=== PATIENT | female | born 1985 | race Caucasian/White ===

== ENCOUNTER 2023-12-27 14:13 | Outpatient (CLI) | payer BC, SELFPAY ==
--- OUTSIDE RECORDS SUMMARY | 2023-12-27 14:17 | XMS_ITS | Continuity of Care Document ---
Author Name Unknown Organization Z [facility] [place] Address [address] [place] [address] [address] [place] [address] Phone Care Team Providers Care Toaster Operator Name Role Phone Cindi OSWALD, Amireg Unavailable Unavailable Advance Directives Directive Yes / No Effective Date File Name No Information Encounters Encounter Description Practice Location Reason(s) For Visit Diagnoses Date Provider Providers Copied on Encounter Z [facility], [address] [place], [place] [address], [place], [address], [place] tel:[phone] [facility] No Information Cindi Butts. [facility], [address] [place] [address] [address], [place], [place], [id number] , [place]. tel:[phone] Referring Provider: Pete Rader, [address], [place], [address]. tel:[phone] Family History Family Member Type Diagnosis Age At Onset No Information Payers Payer name Insurance type Covered constitution party ID Authoriza tion(s) No Information Social History Type Description Quantity Date Captured Comments Sex Female Smoking Status No Information Chief Complaint And Reason For Visit No Information Reason For Referral Reason For Referral No Information History Of Present Illness Encounter Date Complaint History Of Prese nt Illness No Information Functional Status Date Functional Assessmen t No Information Instructions Date Instruction Additional Infor mation No Information Assessments Type Assessment Date No Information Patient Care Teams Name Effective Dates (start - stop) Status Members No Information
--- OUTSIDE RECORDS SUMMARY | 2023-12-27 14:17 | XMS_ITS | Clinical Summary ---
Author Name Unknown Organization [email or web address] Address [place], [place] [address] Care Team Providers Care Mobile Homes Repairer Name Role Phone [place] Primary Care Provider Unavail able Allergies Active Allergy Reactions Criticality Noted Date Comments Levonorgestrel-Ethinyl Estrad Vomiting Medications Medication Sig Dispensed Refills Start Date End Date Status ibuprofen (ADVIL; MOTRIN) 600 mg tabletIndications: Sprain of neck, subsequent encounter Take 1 tablet by mouth 3 times daily with meals. Maximum of 3200 mg in 24 hours. 90 tablet 3 09/16/2015 Active acetaminophen (TYLENOL EXTRA STRGTH) 500 mg tablet Max acetaminophen dose: 4000mg in 24 hrs. Pt takes 1 tablet every day 0 12/09/2015 Active predniSONE (DELTASONE) 20 mg tabletIndications: Granulomatous mastitis Take 1.5 tablets by mouth once daily with a meal. 10 tablet 0 03/16/2016 Active traMADol (ULTRAM) 50 mg tabletIndications: Breast pain Take 0.5 tablets by mouth every 6 hours if needed for Pain. 15 tablet 0 03/22/2016 Active isoniazid 300 mg tabletIndications: TB lung, latent Take 1 tablet by mouth once daily. 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 Zaragoza Hydrocodone, up to 60 a month, usually less. Adjustment disorder with mixed anxiety and depre ssed mood 01/03/2011 Spasm of muscle 03/25/2009 Carpal tunnel syndrome 03/25/2009 Sprain of neck 01/31/2008 Backache, unspecified 09/16/2007 Nonspecific reaction to tube rculin skin test without active tuberculosis Overview: 1998 Resolved Problems Problem Noted Date Diagnosed Date Resolved Date NECK SPRAIN 07/17/2008 07/02/2009 Immunizations Name Administration Dates Next Due DT (Age < 7 years) 09/07/1997 Hepatitis B (Adult) 08/01/2017,06/26/2017 Human Papilloma Virus Vaccine 04/16/2007, 007,09/28/2006 Influenza RIV4 (Age 18+ Year s) PRESERV FREE 10/31/2019 Influenza, IIV3 (Age 6-35 mos) 3,08/12/2012,08/29/2011,2009,10/18/2009 Influenza, IIV3 (Age >=3 years) 10/18/2009 Influenza, IIV4 09/07/2016 Influenza,LAIV4 Live Intrana israel (Flumist) 09/10/2015 MMR 09/07/1997,06/11/1990 Td, Preservative Free (age > = 7 Years) 03/07/2019 Tdap 03/02/2008 Family History Medical History Relation Name Comments Hyperlipidemia Father Hypertension Father Other Father [place] Good Health Mother Diabetes Sister Anesthesia Problem No Family History Blood Disease No Family History Cancer-breast No Family History Relation Name Status Comments Father Mother Sister Social History Tobacco Use Types Packs/Day Years Used Date Smoking Tobacco: Never Smokeless Tobacco: Never Tobacco Cessation:Counseling Given: Yes Alcohol Use Standard Drinks/Week Comments No 0 (1 standard drink = 0.6 oz pur e alcohol) Social Connections Answer Date Recorded Frequency of Communication with Friends and Fami ly Not on file 11/12/2021 Financial Resource Strain Answer Date R ecorded Difficulty of Paying Living Expenses Not on file 11/12/2021 Difficulty of Paying Living Expenses Not on file 11/12/2021 Sex and Gender Information Value Date Recorded Sex Assigned at Not on file Gender Identity Not on file Sexual Orientation Not on file Obstetrics History Last Filed Vital Signs Vital Sign Reading Time Taken Comments Blood Pressure 128/71 10/03/2016 11:00 AM SCIENTIFIC DATABASE CURATOR Pulse 78 10/03/2016 11:00 AM SCIENTIFIC DATABASE CURATOR Temperature 37.1 ??C (98.8 ??F) 10/03/2016 1 1:00 AM SCIENTIFIC DATABASE CURATOR Respiratory Rate 16 07/19/2016 11:3 0 AM CDT Oxygen Saturation 98% 10/03/2016 11: 00 AM SCIENTIFIC DATABASE CURATOR RA Inhaled Oxygen Concentration - - Weight 72.6 kg (160 lb) 08/02/2021 9:34 AM CDT Pt. reported TB 08-02-21 Height 142.2 cm (4' 8) 08/02/2021 9:34 AM CDT Pt. reported TB 08-02-21 Body Mass Index 35.87 08/02/2021 9:34 AM CDT Plan of Treatment Health Maintenance Due Date Last Done Comments HIV for age 15-65 1998 Hepatitis C screening for age 18-79 2001 Depression screening for age 12+ 12/03/2016 12/03/2015 Pap test for age 21-65 03/07/2022 9, 03/07/2019, 02/18/2014, Additional history exists BMI (ht and wt on same day) for age 18+ 08/02/2022 08/02/2021, 03/22/2016, 03/16/2016, Additional history exists COVID-19 vaccine series (2022- season) 2023 03/17/2021, 02/24/2021 Influenza for age 9-49 07/13/2023 9, 09/07/2016, 09/10/2015, Additional history exists Tetanus booster 03/07/2029 03/07/2019, 03/02/2008 Tdap Completed 03/02/2008 Pneumococcal series for age 6-64 Aged Out No longer eligible based on patient's age to complete this topic Care Teams Mobile Homes Repairer Relationship Specialty Start Date End Date Benjamin Hernandez PCP - General 10/15/17
== END 2023-12-27 14:14 | disposition home or self-care (01) ==
PROVIDERS: PCP Family Medicine; Visit Provider Physician Assistant
DX: Z13.220 Encounter for screening for lipoid disorders (principal); E66.9 Obesity, unspecified; N92.0 Excessive and frequent menstruation with regular cycle
CPT/HCPCS: 80061; 84443

== ENCOUNTER 2023-12-31 17:00 | Outpatient (CLI) | payer BC, SELFPAY ==
--- NOTE | 2023-12-31 17:00 | US_ITS ---
Final Report Patient: FABBY TALBOT Facility:?[facility] Patient ID:?[id number] Site Patient ID:?[id number]. Site :?[id number] Study:?US Pelvis TA/TV-12/31/2023 6:04:43 PM Ordering Physician:ROZINA Final Report: Indication: Menorrhagia Technique: Grayscale and color transabdominal and transvaginal ultrasound imaging of the uterus and both ovaries. Transvaginal imaging necessary for visualization of the ovaries. Comparison: None Findings: The uterus measures 9.1 x 4.6 x 5.3 centimeters. There is a small hypoechoic myometrial lesion that measures 1.1 x 0.8 x 1.0 centimeters in the posterior left uterine body and appears to be consistent with a fibroid. Second lesion at the left fundus measures 1.5 x 1.4 x 1.5 centimeters. The endometrium measures 0.9 centimeters in double thickness. There is a fairly well-circumscribed 1.3 x 0.9 x 1.3 centimeter slightly hypoechoic lesion protruding into the endometrial canal at the lower uterine segment. No clear internal vascularity. The left ovary measures 2.7 x 3.3 x 1.8 centimeters. The right ovary measures 1.8 x 2.5 x 2.5 centimeters. No cyst or mass. Normal color Doppler flow. No significant pelvic free fluid. Impression: 1. There are 2 myometrial fibroids measuring up to 1.5 centimeters. 2. Possible endometrial polyp. Dictated by Francia Maddox MD @ 01/01/2024 6:30:43 AM (Electronic Signature)
--- OUTSIDE RECORDS SUMMARY | 2023-12-31 17:02 | XMS_ITS | Continuity of Care Document ---
Author Name Unknown Organization Z [facility] [place] Address [address] [place] [address] [address] [place] [address] Phone Care Team Providers Care Principal Law Clerk Name Role Phone Cindi OSWALD, Amireg Unavailable Unavailable Advance Directives Directive Yes / No Effective Date File Name No Information Encounters Encounter Description Practice Location Reason(s) For Visit Diagnoses Date Provider Providers Copied on Encounter Z [facility], [address] [place], [place] [address], [place], [address], [place] tel:[phone] [facility] No Information Cindi Butts. [facility], [address] [place] [address] [address], [place], [place], [id number] , [place]. tel:[phone] Referring Provider: Pete Rader, [address], [place], [address]. tel:[phone] Family History Family Member Type Diagnosis Age At Onset No Information Payers Payer name Insurance type Covered libertarian ID Authoriza tion(s) No Information Social History [...]
--- OUTSIDE RECORDS SUMMARY | 2023-12-31 17:02 | XMS_ITS | Clinical Summary ---
Author Name Unknown Organization [facility] Address [place], [place] [address] Care Team Providers Care Technician Terminal And Repeater Name Role Phone [place] Primary Care Provider Unavail able Allergies Active [...] Date Resolved Date NECK SPRAIN 07/17/2008 07/02/2009 Encounters Date Type Department Care Team Description 12/28/2023 Lab Requisition [facility] [phone] Marcy Rmoan PA-C from Last 3 Months Immunizations Name Administration Dates Next Due DT [...] Comments Hyperlipidemia Father Hypertension Father Other Father [place] Good Health Mother Diabetes Sister Anesthesia Problem [...] Comments Blood Pressure 128/71 10/03/2016 11:00 AM HYDROGRAPHER Pulse 78 10/03/2016 11:00 AM HYDROGRAPHER Temperature 37.1 ??C (98.8 ??F) 10/03/2016 1 1:00 AM HYDROGRAPHER Respiratory Rate 16 07/19/2016 11:3 0 AM CDT Oxygen Saturation 98% 10/03/2016 11: 00 AM HYDROGRAPHER RA Inhaled Oxygen Concentration - - Weight [...] age to complete this topic Care Teams Technician Terminal And Repeater Relationship Specialty Start Date End Date Benjamin Haskins PCP - General 10/15/17
== END 2023-12-31 17:01 | disposition home or self-care (01) ==
LOC: US 17:00
PROVIDERS: PCP Family Medicine; Visit Provider Physician Assistant
DX: N92.0 Excessive and frequent menstruation with regular cycle (principal); D25.9 Leiomyoma of uterus, unspecified
CPT/HCPCS: 76830; 76856

== ENCOUNTER 2024-01-18 10:10 | Outpatient (CLI) | payer BC, SELFPAY | END 2024-01-18 10:11 | disposition home or self-care (01) | LOC: NFLDREF 01-23 12:46 | PROVIDERS: PCP Family Medicine; Referring Provider Family Medicine; Visit Provider Family Medicine | DX: D64.9 Anemia, unspecified (principal); Z13.220 Encounter for screening for lipoid disorders | CPT/HCPCS: 80053; 80061; 82728 ==

== ENCOUNTER 2024-02-01 08:48 | Outpatient (RCR) | payer BC, SELFPAY ==
--- NOTE | 2024-01-22 14:48 | PC.NURSE ---
Diagnosis: iron deficiency anemia.
--- NOTE | 2024-01-23 11:07 | URNOTE ---
?Request received for authorization for Iron Dextran (InFed) (J1750). Prior authorization is not required per [facility] [place] (Ref#[id number]), Date Range: 01/22/2024 to 01/21/2025.
[2024-02-01 08:59] VITALS: BP 158/94; PULSE 82; RESP 16; TEMP 36.4; O2SAT 100
[2024-02-01] MEDS: 0.9 % SODIUM CHLORIDE 250 ml IV (09:30)
[2024-02-01] MEDS: SODIUM CHLORIDE 0.9 % (FLUSH) 10 ML SYRINGE IVF (09:30)
[2024-02-01] MEDS: IRON DEXTRAN COMPLEX 25 MG in 0.9 % SODIUM CHLORIDE 100 ml 100 ML 400 MG IVPB (09:42)
[2024-02-01 10:07] VITALS: BP 132/78; PULSE 66; RESP 18; TEMP 36.8; O2SAT 96
[2024-02-01] MEDS: IRON DEXTRAN COMPLEX 975 MG in 0.9 % SODIUM CHLORIDE 250 ml 250 ML 270 MG IVPB (11:17)
[2024-02-01 12:30] VITALS: BP 124/81; PULSE 72; RESP 16; TEMP 37.1; O2SAT 96
[2024-02-01 13:09] VITALS: BP 135/88; PULSE 75; RESP 16; TEMP 37.4
== END 2024-07-30 23:59 | disposition home or self-care (01) ==
LOC: CCIC 08:48
PROVIDERS: PCP Family Medicine; Visit Provider Clinical Nurse Specialist
DX: D50.9 Iron deficiency anemia, unspecified (principal)
CPT/HCPCS: 96365; 96366; J1750; J7050

== ENCOUNTER 2024-02-06 07:34 | Day surgery (SDC) | payer BC, SELFPAY ==
[2024-02-06] MEDS: SODIUM CHLORIDE 0.9 % (FLUSH) 10 ML SYRINGE IVF (07:35)
[2024-02-06] MEDS: LACTATED RINGERS 1000 ML 1,000 ML 100 ML IV (07:35)
[2024-02-06 07:43] VITALS: BP 140/87; PULSE 95; RESP 16; TEMP 36.2; O2SAT 99; BMI 36.6
[2024-02-06 07:50] LABS: Ur HCG Qualitative* Negative (Negative)
[2024-02-06 07:59] LABS: Hemoglobin* 11.6 gm/dL (12.0-16.0)
[2024-02-06 08:17] LABS: Creatinine* 0.6 mg/dL (0.5-1.5); Est. Creatinine Clearance* 151.19; Estimated Glomerular Filt Rate 116 ml/min
--- NOTE | 2024-02-06 08:26 | W.ANESCHARGE ---
Anesthesia Charges Start Date/Time Anesthesia Start Date: 02/06/24 Anesthesia Start Time: 08:43 Stop Date/Time Anesthesia Stop Date: 02/06/24 Anesthesia Stop Time: 09:31
--- NOTE | 2024-02-06 08:39 | W.PM.H&PU ---
History & Physical Update History & Physical Update H&P Reviewed and patient assessed: No changes noted
[2024-02-06] MEDS: SILVER NITRATE APPLICATOR 1 EACH STICK..EA. TOPICAL (09:20)
[2024-02-06 09:29] VITALS: BP 95/63; PULSE 94; RESP 16; TEMP 36.3; O2SAT 92
--- NOTE | 2024-02-06 09:32 | W.ANESCHARGE ---
Anesthesia Charges Start Date/Time Anesthesia Start Date: 02/06/24 Anesthesia Start Time: 08:43 Stop Date/Time Anesthesia Stop Date: 02/06/24 Anesthesia Stop Time: 09:31
--- NOTE | 2024-02-06 09:37 | W.PM.GYNPROC ---
Procedure Note Time Seen by Provider: 09:00 Date of procedure: 02/06/24 Procedure Description: Preoperative diagnosis: Kelly is 38 yo with abnormal uterine bleeding - polyps. Postoperative diagnosis: Same. Procedure: Hysteroscopy, dilation and curettage, polypectomy, endometrial ablation. Anesthesia: Mac and paracervical block. Surgeon: Nayely Jimenez MD Assist: None Estimated blood loss: <5 mL IV Fluid: 800 mL Fluid deficit: 115 cc Specimen: Endometrial curettings, sent to path. Findings: On exam under anesthesia: The cervix and vagina appear normal. The uterus was anteverted position, approximately 6 week size, mobile and without masses or nodularity palpable. Adnexa were without mass or fullness palpable bilaterally. On hysteroscopy: multiple endometrial polyps noted. No other abnormalities noted. The uterus sounded to 8 cm. Cervical length 3 cm. Cavity length: 5 cm. Procedure: Kelly was taken to the operating room where conscious sedation was found to be adequate. She was placed in a dorsal lithotomy position and an exam under anesthesia was performed with the findings stated above. She was then prepped and draped in a normal sterile manner. An a bivalve is sterile speculum was placed in the vaginal canal. A paracervical block was placed using 1% lidocaine: 5 mL were injected at the 4 and 8 o'clock positions on the cervix. A long tenaculum clamp was placed on the anterior lip of the cervix. The cervix was then dilated to Hegar 6. Uterus sounded to 8 cm. The cervix measured 3 cm. There for the cavity length was 5 cm. The Truclear hysteroscope was advanced into the uterus. A diagnostic hysteroscopy performed with normal saline as the insufflation medium. Findings are stated above. The Truclear incisor was then advanced into the camera. And the global curettage and polypectomy performed with this incisor. The cavity appeared normal once the curettage was performed completed. The hysteroscope was removed. The cervix was then dilated to Hegar 8. The Cathy device was advanced into the uterus. The cavity check was completed and the ablation took place over 2 min. The Cathy was removed, the hysteroscope readvanced to document ablation of the entire cavity. The hysteroscope was then removed. The tenaculum clamp removed from the anterior lip of the cervix. Silver nitrate was used to obtain hemostasis. The patient tolerated this procedure well. Sponge, lap and instrument counts were correct x2 at the end of the procedure and the patient was taken to the recovery area in stable condition. Debrief with OR team performed and specimen reviewed at the conclusion of the procedure.
[2024-02-06 09:45] VITALS: BP 116/82; PULSE 90; RESP 16; O2SAT 94
[2024-02-06 10:00] VITALS: BP 128/82; PULSE 76; RESP 16; O2SAT 98
== END 2024-02-06 10:20 | disposition home or self-care (01) ==
PROVIDERS: PCP Family Medicine; Visit Provider Obstetrics & Gynecology
PROC: 0UF98ZZ Fragmentation in Uterus, Via Natural or Artificial Opening Endoscopic (ICD-10-PCS; CPT 58563; principal; 2024-02-06 08:00)
DX: N84.0 Polyp of corpus uteri (principal); N93.8 Other specified abnormal uterine and vaginal bleeding
CPT/HCPCS: 58563; 00952; 36415; 81025; 82565; 85018; 88305; A9270; J1100; J1885; J2250; J2405; J2704; J3010; J3490; J7120